=== PATIENT | male | born 1980 | race Caucasian/White ===

== ENCOUNTER 2017-05-04 13:26 | Emergency (ER) | payer SELFPAY ==
[2017-05-04 13:33] VITALS: BP 129/74
[2017-05-04] MEDS ORDERED: AZITHROMYCIN 250 MG TABLET PO ONE (13:57)
[2017-05-04] MEDS ORDERED: CEFTRIAXONE INJ 250 MG VIAL IM ONE (13:57)
[2017-05-04] MEDS ORDERED: LIDOCAINE 1% INJ-PF (10 MG/ML) 30 ML SDV INFIL ONE (13:57)
--- NOTE | 2017-05-04 14:03 | ER Document Report ---
HPI - HPI Patient complains to provider of: std exposure Pain Level: Denies Context: 37 yo male presents to ED c/o exposure to STD. pt reports his ex-girlfriend tested positive for STD but he is unsure of which infection she has. pt denies any symptoms at this time. no dysuria, no penile drainage, no testicular pain. no abdominal pain, no fever Associated Symptoms: None Exacerbated by: Denies Relieved by: Denies - ROS Systems Reviewed and Negative: Yes All other systems reviewed and negative - DERM Skin Color: Normal Past Medical History - General Information source: Patient - Social History Smoking Status: Current Every Day Smoker Frequency of alcohol use: Social Drug Abuse: None Lives with: Alone Family History: Reviewed & Not Pertinent - Medical History Medical History: Negative Renal/ Medical History: Denies: Hx Peritoneal Dialysis Vertical Provider Document - CONSTITUTIONAL Agree With Documented VS: Yes Exam Limitations: No Limitations General Appearance: WD/WN, No Apparent Distress - INFECTION CONTROL TRAVEL OUTSIDE OF THE [place] IN LAST 30 DAYS: No - HEENT HEENT: Atraumatic, PERRLA - NECK Neck: Normal Inspection, Supple - RESPIRATORY Respiratory: Breath Sounds Normal, No Respiratory Distress O2 Sat by Pulse Oximetry: 96 - CARDIOVASCULAR Cardiovascular: Regular Rate, Regular Rhythm - GI/ABDOMEN Gastrointestinal: Abdomen Soft, Abdomen Non-Tender - MUSCULOSKELETAL/EXTREMETIES Musculoskeletal/Extremeties: MAEW, FROM, Non-Tender - NEURO Level of Consciousness: Awake, Alert, Appropriate Course - Vital Signs Vital signs: Temp Pulse Resp BP Pulse Ox 98.5 F 78 18 129/74 H 96 05/04/17 13:31 05/04/17 13:31 05/04/17 13:31 05/04/17 13:31 05/04/17 13:31 Discharge - Discharge Clinical Impression: STD exposure Condition: Stable Disposition: HOME, SELF-CARE Instructions: Gonorrhea ([facility]), Chlamydia ([facility]), Rocephin ([facility]), Antibiotic Therapy ([facility]) Additional Instructions: You have been treated for Gonorrhea and Chlamydia No unprotected sex x 1 week follow up with primary care for any concerns return to ER for any worsening
[2017-05-04 16:41] LABS: CHLAM PCR NOT DETECTED (NOT DETECT)
== END 2017-05-04 14:20 | disposition home or self-care (01) ==
LOC: ER 13:26
DX: Z20.2 Contact with and (suspected) exposure to infections with a predominantly sexual mode of transmission (principal); F17.200 Nicotine dependence, unspecified, uncomplicated
CPT/HCPCS: 99283; 96372; 87491; 87591; J3490; J0696